=== PATIENT | male | born 1975 | race Caucasian/White ===

== ENCOUNTER 2022-10-16 04:21 | Outpatient (CLI) | payer BC, SELFPAY ==
[2022-10-16 08:51] LABS: Hemoglobin A1C 5.7 % (<5.7)
[2022-10-16 08:57] LABS: ALT 23 U/L (16-63); AST 19 U/L (15-37); Albumin 3.7 g/dL (3.4-5.0); Alkaline Phosphatase 81 U/L (46-116); Anion Gap 7.2 mmol/L (3-11); BUN 12 mg/dL (7-18); Bilirubin, Total 0.4 mg/dL (0.2-1.0); CO2 28.8 mmol/L (21.0-32.0); Calcium 8.8 mg/dL (8.5-10.1); Calculated LDL 155 mg/dL (<100); Chloride 101 mmol/L (98-107); Cholesterol 222 mg/dL (<200); Estimated GFR 92.84 (mL/min/1.73m2); Glucose 97 mg/dL (74-106); HDL Cholesterol 48 mg/dL (40-60); Potassium 3.9 mmol/L (3.5-5.1); Sodium 137 mmol/L (136-145); TSH 3.46 uIU/mL (0.36-3.74); Total Protein 7.5 g/dL (6.4-8.2); Triglyceride 96 mg/dL (<150)
[2022-10-16 09:08] LABS: Vitamin D 25 Total 18.8 ng/mL (30-100)
[2022-10-16 10:17] LABS: FREE T4 0.86 ng/dL (0.76-1.46)
[2022-10-16 18:17] LABS: CRP, High Sensitivity 4.53 mg/L (See Note)
[2022-10-16 18:30] LABS: T3,Free 4.3 pg/mL (2.8-5.3)
[2022-10-16 19:42] LABS: Thyroglobulin Antibody 78 U/mL (<=60); Thyroperoxidase Antibody >1300 U/mL (<=60)
[2022-10-17 09:53] LABS: Homocysteine 11.6 umol/L (5.0-13.9)
[2022-10-18 10:50] LABS: Lipoprotein (a) <7 nmol/L (<75)
[2022-10-18 14:20] LABS: Apolipoprotein A1, S 126 mg/dL (>=120); Apolipoprotein B, S 109 mg/dL (See Comment); Apolipoprotein B/A 1 ratio 0.9 (See Comment)
== END 2022-10-16 04:22 | disposition home or self-care (01) ==
LOC: LBO 04:21
PROVIDERS: PCP Naturopath; Visit Provider Naturopath
DX: Z13.220 Encounter for screening for lipoid disorders (principal); E55.9 Vitamin D deficiency, unspecified; Z86.39 Personal history of other endocrine, nutritional and metabolic disease
CPT/HCPCS: 36415; 80053; 80061; 82172; 82306; 83090; 83695; 86141; 83036; 84439; 84443; 84481; 86376; 86800